=== PATIENT | female | born 1995 | race Caucasian/White ===

== ENCOUNTER 2019-03-26 00:12 | Emergency (ER) | payer BC ==
[~2019-03-26] VITALS: Ht 165.1 cm; Wt 53.1 kg
--- NOTE | 2019-03-26 00:24 | NUR ---
TECH AT BEDSIDE FOR EKG
[2019-03-26 00:31] VITALS: BP 113/59
--- NOTE | 2019-03-26 00:37 | NUR ---
PT SIGNED WAIVER
--- NOTE | 2019-03-26 00:43 | NUR ---
RADIOLOGY AT BEDSIDE FOR XRAY
[2019-03-26] MEDS ORDERED: IBUPROFEN 600 MG TABLET PO ONE ×2 (00:56→01:00)
== END 2019-03-26 01:04 | disposition home or self-care (01) ==
LOC: ER 00:16
DX: R07.89 Other chest pain (principal)
CPT/HCPCS: 71045-TC